=== PATIENT | female | born 1955 | race Caucasian/White ===

== ENCOUNTER 2016-05-06 07:12 | Day surgery (SDC) | payer OTHER ==
[~2016-05-06] VITALS: Ht 160 cm; Wt 60.0 kg
[~2016-05-06 07:12] MED LIST: PROM25SU46 RC; SUMA100T2 PO; THYR30TA2 PO; ZONI50CA3 PO
[2016-05-06 07:31] VITALS: BP 124/90; PULSE 64; RESP 16; O2SAT 98
[2016-05-06] MEDS ORDERED: fentaNYL-PF 50 mCg/mL 2 mL Inj ONE (07:46)
[2016-05-06] MEDS: 0.9% Sodium Chloride 1,000 ML ONE ×2 (08:04→08:10)
[2016-05-06 08:18] VITALS: BP 98/43; PULSE 67; RESP 14; O2SAT 98
[2016-05-06 08:28] VITALS: BP 99/57; PULSE 58; RESP 14; O2SAT 96
[2016-05-06 08:38] VITALS: BP 102/69; PULSE 63; RESP 16; O2SAT 100
--- NOTE | 2016-05-06 13:07 | ENDO ---
[address] [address] ENDOSCOPY PROCEDURE PATIENT: GERALDO SCHMITZ : 1955 MR#: [id number] ADMIT: 05/06/2016 JOB ID: [id number] DATE: 05/06/2016 PROCEDURE: Colonoscopy. PREOPERATIVE DIAGNOSIS(ES): Guaiac-positive stools. POSTOPERATIVE DIAGNOSIS(ES): Small internal hemorrhoids. ANESTHESIA: 1. Fentanyl 75 mcg. 2. Versed 3 mg IV administered. COMPLICATIONS: None. BLOOD LOSS: Minimal. DESCRIPTION OF PROCEDURE: After risks and benefits were explained to the patient, informed consent was obtained. After anesthesia administered, colonoscope was inserted from the rectum to the cecum. Mucosa carefully examined. Prep of the patient was excellent. After procedure was done, the scope withdrawn and procedure terminated. FINDINGS: Upon inspection of the anus, no masses, hemorrhoids, ulcers or fissures that were seen. Throughout the entire examination, there are no polyps, masses or lesions. Retroflexion showed small internal hemorrhoids. IMPRESSION: Small internal hemorrhoids. RECOMMENDATIONS: 1. Stool softer as needed. 2. Followup in GI clinic as needed. 3. Repeat colonoscopy in 10 years for colorectal cancer screening.
[2016-05-07] MEDS ORDERED: Sodium Chloride LOK Flush 10 mL Syringe IV PRN (06:00)
[2016-05-07] MEDS ORDERED: fentaNYL-PF 50 mCg/mL 2 mL Inj IVPUSH PRN (06:00)
[2016-05-07] MEDS ORDERED: 0.9% Sodium Chloride 1,000 ML IV SCH (06:00)
== END 2016-05-06 23:59 | disposition home or self-care (01) ==
LOC: END 07:12
PROVIDERS: ATTEND Internal Medicine Gastroenterology
DX: R19.5 Other fecal abnormalities (principal); K64.8 Other hemorrhoids; Z80.0 Family history of malignant neoplasm of digestive organs; G43.909 Migraine, unspecified, not intractable, without status migrainosus; E03.9 Hypothyroidism, unspecified
CPT/HCPCS: 45378; G0500; J2250; J3010; J7030